=== PATIENT | male | born 1970 | race Two or more races ===

== ENCOUNTER 2025-05-09 10:47 | Emergency (ER) | payer OTHER ==
[~2025-05-09] VITALS: Ht 170.2 cm; Wt 83.5 kg
[2025-05-09] MEDS ORDERED: HUMALOG100 UNIT/2 (11:05)
[2025-05-09] MEDS ORDERED: METFORMIN HCL500 M3 (11:05)
[2025-05-09] MEDS ORDERED: QBRELIS1 MG/1 ML (11:05)
[2025-05-09] MEDS ORDERED: CHILDREN'S ASPI81 MG (11:06)
[2025-05-09] MEDS ORDERED: ATORVASTATIN CA20 MG (11:06)
== END 2025-05-09 12:04 | disposition home or self-care (01) ==
LOC: ER 10:52
DX: H10.89 Other conjunctivitis (principal); E11.9 Type 2 diabetes mellitus without complications; Z79.4 Long term (current) use of insulin; E78.00 Pure hypercholesterolemia, unspecified; I10 Essential (primary) hypertension